=== PATIENT | male | born 1990 | race African-American/Black ===

== ENCOUNTER 2019-01-30 14:34 | Outpatient (CLI) | payer OTHER ==
--- NOTE | 2019-01-30 15:56 | ULT ---
EXAM: RENAL ULTRASOUND: 01/30/19 HISTORY: Acute renal failure. COMPARISON: None. TECHNIQUE: Sagittal and transverse imaging of the kidneys is performed. FINDINGS: Bilaterally, no hydronephrosis. Right kidney has a normal cortical echotexture measuring 9.0 x 5.1 x 5.1 cm. Left kidney has a normal cortical echotexture. Limited evaluation of the lower pole due to shadowing Left kidney measures 5.2 x 9.0 x 4.8 cm. Urinary bladder is inadequately distended, resulting in blad aretha wall thickening of 0.6 cm. Bilateral ureteral jets are identified. IMPRESSION: Bladder wall thickening likely due to inadequate distention. If there is concern for cystitis or blad aretha process, consider cystoscopy. POS: [facility]
== END 2019-01-30 14:35 | disposition home or self-care (01) ==
LOC: BICULT 14:34
PROVIDERS: ATTEND Internal Medicine Nephrology
DX: N17.9 Acute kidney failure, unspecified (principal); N32.89 Other specified disorders of bladder
CPT/HCPCS: 76770

== ENCOUNTER 2024-04-24 13:28 | Emergency (ER) | payer OTHER ==
[2024-04-24 14:16] LABS: #Basophils 0.05 10x3/uL (0.0-0.2); %Basophils 0.3 % (0.0-1.0); %Eosinophils 1.2 % (0.0-10.0); %Lymphocytes 16.6 % (21.0-51.0); %Monocytes 8.5 % (0.0-10.0); %Neutrophils 72.9 % (42.0-75.0); Hematocrit 44.6 % (42.0-52.0); Hemoglobin 15.5 g/dL (14.0-18.0); Mean Corpuscular HGB CONC 34.8 g/dL (32.0-36.0); Mean Corpuscular Hemoglobin 29.8 pg (27.0-31.0); Mean Corpuscular Volume 85.8 fL (78.0-98.0); Mean Platelet Volume 8.9 fL (7.4-10.4); Platelet Count 209 10x3/uL (130-400); RBC Distribution Width 13.2 % (11.5-14.5)
[2024-04-24 14:30] LABS: ALT (SGPT) 28 U/L (8-55); AST (SGOT) 21 U/L (5-34); Albumin 3.7 g/dL (3.5-5.0); Alkaline Phosphatase 119 U/L (40-110); Anion Gap 14 mmol/L (10-20); BUN (Urea Nitrogen) 8 mg/dL (8.9-20.6); Bilirubin, Total 0.6 mg/dL (0.2-1.2); Calc. Creatinine Clearance 0 mL/min (70-130); Calcium 9.4 mg/dL (7.8-10.44); Carbon Dioxide 24 mmol/L (22-29); Chloride 103 mmol/L (98-107); Estimated GFR 115; Globulin 4.9 g/dL (2.4-3.5); Glucose 132 mg/dL (70-105); Potassium 3.7 mmol/L (3.5-5.1); Protein, Total 8.6 g/dL (6.0-8.3); Sodium 137 mmol/L (136-145)
[2024-04-24] MEDS ORDERED: Iopamidol-370 76% 500 ML MDV (1 ML CHARGE) ONE (14:53)
[2024-04-24] MEDS ORDERED: methylPREDNISolone Sod Succ/PF 125 MG/2 ML VIAL ONE (15:09)
[2024-04-24] MEDS ORDERED: Acetaminophen 500 MG TAB ONE (15:09)
[2024-04-24] MEDS ORDERED: Sodium Chloride 0.9% 100 ML ONE (16:13)
[2024-04-24] MEDS ORDERED: cefTRIAXone (ROCEPHIN) 1 GM VIAL ONE (16:13)
[2024-04-24] MEDS ORDERED: Midazolam HCl 2 mg/2 ml Vial ONE (17:27)
[2024-04-24] MEDS ORDERED: Benzocaine 20% Spray 60 ML CAN ONE (17:42)
== END 2024-04-24 20:15 | disposition home or self-care (01) ==
LOC: ERS 13:28
DX: J36 Peritonsillar abscess (principal); I10 Essential (primary) hypertension; F84.0 Autistic disorder; F79 Unspecified intellectual disabilities; Z79.899 Other long term (current) drug therapy
CPT/HCPCS: 36415; 42700; 70491; 80053; 83605; 85025; 87040; 87081; 87430; 96361; 96365; 96375; J0696; J2250; J2919; Q9967